=== PATIENT | male | born 1965 | race Caucasian/White ===

== ENCOUNTER 2024-03-06 05:16 | Emergency (ER) | payer BC, SELFPAY ==
--- NOTE | 2024-03-06 08:15 | ED.GENMED ---
History of Present Illness
General
Chief Complaint: Chest Problem
Source: patient
Exam Limitations: none
Time Seen by Provider: 03/06/24 08:04
Nursing documentation reviewed up to this point in time: agreed with
History of Present Illness
History of Present Illness:
Patient is a pleasant 58-year-old man who reports that he was at the [facility] at around 5:00 AM to start his workout. [facility] and when his hands were fully extended with the weight above his head, it slipped and fell
directly onto his chest. Patient reports that it took his breath away for several minutes, making him concerned. Patient reports that after an hour of waiting in the emergency department, he felt much better and almost thought about leaving.
Patient reports soreness in the sternal area when he takes a deep breath. He reports that the pain seems better when he stands up and walks around. He denies any shortness of breath at this time. He denies any blood thinners. He denies any neck
pain or back pain.
Past History
Past History
ED Past Medical History: None
ED Past Surgical History: Orthopedic
Social History
Tobacco: Non-smoker
Alcohol: None
Drug: None
Personal:
Living: with family
Employment: Other
Family History
Family History: Other
Review of Systems
Review of Systems
Allergies reviewed?: Yes
All Other Systems: ROS reviewed and negative except as documented in HPI and ROS
Constitutional: Reports no symptoms
EENT: Reports no symptoms
Respiratory: Reports no symptoms
Cardiac: Reports chest pain (Chest pain when breathing)
ABD/GI: Reports no symptoms
: Reports no symptoms
Musculoskeletal: Reports no symptoms
Skin: Reports no symptoms
Neurological: Reports no symptoms
Endocrine: Reports no symptoms
Hematologic/Lymphatic: Reports no symptoms
Psychiatric: Reports no symptoms
Phy Exam
Physical Exam
Physical Exam:
Physical Exam
General: no apparent distress, not acutely ill, smiling, conversational, atraumatic face and head
Neck: supple. Nontender
Heart: s1/s2 regular rate and rhythm, no murmur. equal radial pulses. Mild tenderness of central anterior chest wall without any sign of deformity, swelling or ecchymoses
Lungs: no acute respiratory distress. Clear equal breath sounds bilaterally. When patient takes a deep breath, he has reproducible central chest wall pain
Abdomen: Soft, nontender, nondistended
Neuro: alert and oriented. no focal neurological deficits
Skin: no rash
Psychiatric: well kept. interactive and cooperative
Extremities: no edema. No tenderness, deformity of upper or lower extremities. Patient has a normal gait and able to walk around comfortably
Course
Orders/Labs/Results
Orders:
Orders
03/06/24 05:29
Chest [CR Chest - 2 Views ] Urgent
Comment:
Reason For Exam: weight fell onto chest
03/06/24 08:10
Electrocardiogram (*1) Urgent
Reason for Study: Chest Pain
EKG- Treatment ONCE
Ibuprofen [Motrin] 600 mg PO NOW STA
Vital Signs
Initial and Last Documented VS:
Initial Vital Signs
Temp Pulse Resp BP Pulse Ox
98.6 F 65 16 154/94 99
03/06/24 05:26 03/06/24 05:26 03/06/24 05:26 03/06/24 05:26 03/06/24 05:26
Last Documented Vital Signs
Temp Pulse Resp BP Pulse Ox
98.6 F 65 16 154/94 99
03/06/24 05:26 03/06/24 05:26 03/06/24 05:26 03/06/24 05:26 03/06/24 05:26
MDM/Problems Addressed
Differential Diagnosis Includes:
Chest wall contusion, sternal fracture, cardiac contusion, pneumothorax
MDM/Problems Addressed:
Patient presents with acute chest pain after blunt trauma to chest wall
Acute Exacerbation and/or Progression of Chronic Illness:
Patient is acutely hypertensive, likely due to anxiety and pain
Acute Exacerbation and/or Progression of Chronic Illness: HTN
*Radiology
Radiology exam reviewed: preliminary read by ED provider (Chest x-ray reviewed by me. No pneumothorax. No sign of sternal fracture or rib fracture) and radiology read reviewed
*Pulse Oximetry
Patient hypoxic: no
*EKG
Interpreted by ED Provider?: Yes
Interpretation: normal
Comparison EKG: no changes
Rate: normal
Rhythm: sinus
Carroll: normal axis
Interval: normal interval
QRS Pattern: normal QRS
Ischemia: no ischemia
*Sueding Machine Operator Interpretation
Rate: Sueding Machine Operator- N/A
*Critical Care Note
Total Time (30-74mins, 75-104mins- exclusive of procedures): Not Applicable
Data Reviewed
Source: patient
Patient Management
Social determinants of health affecting care: Living situation and Strong social support
Escalation/DeEscalation of care consider admission/obs:
Patient able to walk around comfortably with any acute respiratory distress. His pulse ox has been completely normal. EKG shows no ST changes that look concerning for obvious cardiac damage. Patient states he feels well and would like to go home.
Patient understands to return with any increased work of breathing. He understands the importance of taking Motrin every 6-8 hours to control the pain to decrease the risk of atelectasis and pneumonia. I explained to patient that this could be a
significant injury that could cause a cardiac contusion and that any increased work of breathing, dizziness, palpitations or worsening chest pain, he should come back immediately without any hesitation
ED Attending Note
-
Portions of this chart may have been created with voice recognition software.� Occasional wrong word or��sound alike� substitutions may have occurred due to the inherent limitations of voice recognition software.
Discharge Plan
Departure
Patient Disposition: Home (Routine Discharge)
Date of Disposition: 03/06/24
Time of Disposition: 08:19
Patient with high blood pressure during this ER visit?: Yes
Condition: Good
Covid-19: Not Applicable
Discharge Problem:
Blunt chest wall injury
Instructions: Blunt Chest Trauma ED, BLOOD PRESSURE
Prescriptions:
No Action
amoxicillin-pot clavulanate 875-125 mg tablet
1 tab PO Q12H Qty: 14 0RF
Referrals:
Aubrey Mckoy DO [Family Provider] -
Activity Restrictions/Additional Instructions:
It is extremely important that you take 600 mg of ibuprofen/Advil every 6-8 hours with food for pain. You likely need to treat the pain for the next 3 to 4 days.
Please return with any increased work of breathing, dizziness, or increased chest pain
Interventions
Interventions:
*Risk Screen - Suicide Last Done: 03/06/24 05:26
*General Assessment Last Done: 03/06/24 05:26
*Neglect/Abuse Screening Last Done: 03/06/24 05:26
*ED COVID-19 Vaccine History Last Done: 03/06/24 05:26
Discharge Date and Time
Print Language: SWEDISH
== END 2024-03-06 08:45 | disposition home or self-care (01) ==
LOC: EMR 05:16
PROVIDERS: EMERGENCY PHYSICIAN Emergency Medicine; FAMILY PHYSICIAN Family Medicine
DX: S29.9XXA Unspecified injury of thorax, initial encounter (principal); W18.39XA Other fall on same level, initial encounter; I10 Essential (primary) hypertension
CPT/HCPCS: 99283; 71046; 93005